=== PATIENT | female | born 1990 | race Caucasian/White ===

== ENCOUNTER → 2020-11-15 | Outpatient (CLI) | payer OTHER ==
[~2020-11-15] MED LIST: AIMOVIG AU140 MG/1 M SQ; ALBUTEROL1.25 MG/3 INH; AMILORIDE HCL5 MG PO; ASPIRIN EC81 MG PO; BREO ELLIPTA 21 EACH INH; CO Q-1010 MG PO; DAILY VITE1 EACH PO; ENTOCORT EC3 MG PO; FOLIC ACID1 MG PO; HYDROCODON-ACE1 EAC4 PO; HYOSCYAMINE0.375 M1 PO; K-DUR TAB 20 M20 MEQ PO; KEPPRA1000 MG PO; LAMICTAL200 MG PO; LYSINE1000 MG PO; MAGNESIUM OXID500 MG IV; NORA-BE0.35 MG PO; PHYSICIANS1000 MCG/1 INJ; POTASSIUM10 MEQ/100 IV; ROBAXIN-750750 MG PO; SAPHRIS10 MG SL; SAPHRIS5 MG SL; SPIRONOLACTONE100 MG PO; TRAZODONE HCL100 MG PO; WAL-ZYR10 M1 PO
[2020-11-15 11:57] LABS: BUN/CREATININE RATIO 10 (0-10)
== END ==
LOC: OPSV2 10:00
PROVIDERS: Surgery
DX: Z01.812 Encounter for preprocedural laboratory examination (principal)
CPT/HCPCS: 36415; 80048

== ENCOUNTER → 2020-11-18 | Day surgery (SDC) | payer OTHER | END | disposition home or self-care (01) | LOC: OR 06:36 | PROVIDERS: Surgery | PROC: 02HV33Z Insertion of Infusion Device into Superior Vena Cava, Percutaneous Approach (ICD-10-PCS; principal; 2020-11-18 08:45) | DX: I87.8 Other specified disorders of veins (principal); N28.9 Disorder of kidney and ureter, unspecified; I49.9 Cardiac arrhythmia, unspecified; J45.909 Unspecified asthma, uncomplicated; F41.9 Anxiety disorder, unspecified; F31.9 Bipolar disorder, unspecified; G43.909 Migraine, unspecified, not intractable, without status migrainosus; Z88.1 Allergy status to other antibiotic agents; Z88.8 Allergy status to other drugs, medicaments and biological substances; Z91.041 Radiographic dye allergy status; Z79.82 Long term (current) use of aspirin; Z79.899 Other long term (current) drug therapy; Z20.822 Contact with and (suspected) exposure to COVID-19; Z91.040 Latex allergy status | CPT/HCPCS: 71045; 77001; 84703; C1769; C1788; J1642; J2250; J2405; J2704; J3010; J7040; J7120 ==

== ENCOUNTER → 2020-12-13 | Outpatient (CLI) | payer OTHER | LOC: RAD 10:35 | DX: T85.698A Other mechanical complication of other specified internal prosthetic devices, implants and grafts, initial encounter (principal) | CPT/HCPCS: 71045 ==